=== PATIENT | male | born 1990 | race African-American/Black ===

== ENCOUNTER 2017-02-14 13:23 | Observation (INO) | payer MEDICAID, OTHER ==
[~2017-02-14] VITALS: Ht 165.1 cm; Wt 59.0 kg
[2017-02-14 14:00] LABS: Basophils # (auto) 0.1 uL; Basophils % (auto) 0.4 % (0.0-2.0); Eosinophils # (auto) 0 uL; Hematocrit 45.1 % (41.0-53.0); Hemoglobin 15.1 g/dL (13.5-17.5); Lymphocytes # (auto) 1.6 uL; Lymphocytes % (auto) 10.9 % (10.0-50.0); Mean Corpuscular Hemoglobin 31.4 pg (28.0-32.0); Mean Corpuscular Hgb Conc. 33.4 g/dL (32.0-36.0); Mean Platelet Volume 8.2 fL (7.4-10.4); Monocytes # (auto) 0.4 uL; Monocytes % (auto) 2.4 % (0.0-12.0); Neutrophils # (auto) 12.9 uL; Neutrophils % (auto) 86.3 % (37.0-80.0); Platelet Count (auto) 423 10^3/uL (140-450); White Blood Cell 14.9 10^3/uL (4.4-10.8)
[2017-02-14 14:12] LABS: Albumin 4.1 g/dL (3.4-5.0); Anion Gap 12 (5-15); Aspartate Aminotransferase 20 U/L (15-37); BUN/Creatinine Ratio 6.6; Blood Urea Nitrogen 9 mg/dL (7-18); Calcium 8.9 mg/dL (8.5-10.1); Carbon Dioxide 24 mmol/L (21-32); Chloride 106 mmol/L (98-107); GFR African American 81 mL/min; GFR Non-African American 67 mL/min; Glucose 106 mg/dL (74-106); Potassium 3.6 mmol/L (3.5-5.1); Sodium 142 mmol/L (136-145)
[2017-02-14 14:15] LABS: Alkaline Phosphatase 64 U/L (45-117); Bilirubin, Total 0.6 mg/dL (0.2-1.0); Total Protein 8.2 g/dL (6.4-8.2)
[2017-02-14 14:24] LABS: Urine Bilirubin Negative (Negative); Urine Blood Negative /uL (Negative); Urine Color Yellow (Yellow); Urine Glucose Normal (Normal); Urine Ketone TRACE (Negative); Urine Mucus FEW (None Seen); Urine Nitrite Negative (Negative); Urine RBC 4 /hpf (0 - 3); Urine Urobilinogen Normal (Negative); Urine pH 6.5 (5.0-8.0)
[2017-02-14] MEDS ORDERED: PANTOPRAZOLE SODIUM 80 MG in SODIUM CHL 0.9% 60 ML IV ONE (15:30)
[2017-02-14] MEDS ORDERED: ONDANSETRON HCL 4 MG/2 ML VIAL IV ONE (15:30)
[2017-02-14] MEDS ORDERED: PANTOPRAZOLE SODIUM 40 MG/10 ML VIAL IV ONE (15:45)
[2017-02-14] MEDS ORDERED: SODIUM CHLORIDE 0.9% 1,000 ML IV ONE (15:45)
[2017-02-14 16:17] VITALS: BP 138/76
[2017-02-14] MEDS ORDERED: KETOROLAC TROMETH 30 MG/ML 1ML VIAL IV ONE (16:30)
[2017-02-14 18:11] LABS: Amylase 91 U/L (25-115)
== END 2017-02-14 18:01 | disposition home or self-care (01) | DRG 241 ==
LOC: ER 13:32 → OVERFLOW 15:46 → ER 18:01
PROVIDERS: ADMIT Family Medicine; ATTEND Family Medicine
DX: K29.20 Alcoholic gastritis without bleeding (principal); F10.10 Alcohol abuse, uncomplicated
CPT/HCPCS: 36415; 71010; 80053; 80307; 80320; 81001; 82150; 83690; 85025; 96361; 96374; 96375; 99285; C9113; G0378; J1885; J2405; J7030

== ENCOUNTER 2017-02-15 08:47 | Emergency (ER) | payer MEDICAID ==
[~2017-02-15] VITALS: Ht 165.1 cm; Wt 59.0 kg
[2017-02-15 09:21] LABS: Basophils # (auto) 0.1 uL; Basophils % (auto) 0.7 % (0.0-2.0); Eosinophils # (auto) 0.1 uL; Eosinophils % (auto) 0.4 % (0.0-7.0); Hematocrit 45.4 % (41.0-53.0); Hemoglobin 15.2 g/dL (13.5-17.5); Lymphocytes # (auto) 3.3 uL; Lymphocytes % (auto) 22.4 % (10.0-50.0); Mean Corpuscular Hemoglobin 31.3 pg (28.0-32.0); Mean Corpuscular Hgb Conc. 33.6 g/dL (32.0-36.0); Mean Corpuscular Volume 93.3 fL (80.0-100.0); Mean Platelet Volume 8.1 fL (7.4-10.4); Monocytes # (auto) 1.2 uL; Monocytes % (auto) 8.1 % (0.0-12.0); Neutrophils % (auto) 68.4 % (37.0-80.0); Platelet Count (auto) 426 10^3/uL (140-450); Red Cell Distribution Width 13.1 % (11.6-16.0); White Blood Cell 14.6 10^3/uL (4.4-10.8)
[2017-02-15 09:47] LABS: Albumin 4.3 g/dL (3.4-5.0); BUN/Creatinine Ratio 11.3; Bilirubin, Total 1.1 mg/dL (0.2-1.0); Potassium 3.4 mmol/L (3.5-5.1); Total Protein 7.7 g/dL (6.4-8.2)
[2017-02-15] MEDS ORDERED: SODIUM CHLORIDE 0.9% 1,000 ML IVB ONE (10:08)
[2017-02-15] MEDS ORDERED: DONNATAL 5ml ORAL Elix (BELLADONNA ALK-PHENOBARB) PO ONE (10:15)
[2017-02-15] MEDS ORDERED: FAMOTIDINE 20 MG TAB PO ONE (10:15)
[2017-02-15] MEDS ORDERED: KETOROLAC TROMETH 30 MG/ML 1ML VIAL IV ONE (10:15)
[2017-02-15] MEDS ORDERED: ALUM & MAG HYDROX-SIMETH LIQ(MAALOX) 30 ML PO ONE (10:15)
[2017-02-15 10:31] LABS: Magnesium 2.4 mg/dL (1.6-2.6)
[2017-02-15] MEDS: PROMETHAZINE HCL 25 MG/ML 1ML IV PRN ×2 (11:14→12:31)
[2017-02-15] MEDS ORDERED: POTASSIUM CHL 10% (20 MEQ/15ML) ORAL SOLN PO ONE (12:15)
[2017-02-15 12:19] LABS: Urine Bilirubin Negative (Negative); Urine Blood Negative /uL (Negative); Urine Color Yellow (Yellow); Urine Glucose Normal (Normal); Urine Mucus FEW (None Seen); Urine Nitrite Negative (Negative); Urine RBC 1 /hpf (0 - 3); Urine Squamous Epithelial Cell FEW /hpf (<5); Urine Urobilinogen Normal (Negative); Urine pH 6.5 (5.0-8.0)
[2017-02-15 12:22] LABS: Urine Ketone 1+ (Negative)
[2017-02-15 13:36] VITALS: BP 110/59
== END 2017-02-15 14:52 | disposition home or self-care (01) ==
LOC: ER 08:47
DX: R10.32 Left lower quadrant pain (principal); F12.10 Cannabis abuse, uncomplicated; F15.10 Other stimulant abuse, uncomplicated; F17.200 Nicotine dependence, unspecified, uncomplicated
CPT/HCPCS: 36415; 74176; 80053; 80307; 81001; 83690; 83735; 85025; 93005; 94761; 96361; 96374; 96375; 99285; J1885; J2550; J7030; J7040

== ENCOUNTER 2017-02-17 12:25 | Emergency (ER) | payer MEDICAID ==
[~2017-02-17] VITALS: Ht 165.1 cm; Wt 59.0 kg
[2017-02-17 12:32] VITALS: BP 136/76
== END 2017-02-17 17:00 | disposition left against medical advice (07) ==
LOC: ER 12:25
DX: R10.9 Unspecified abdominal pain (principal); R11.2 Nausea with vomiting, unspecified; Z53.21 Procedure and treatment not carried out due to patient leaving prior to being seen by health care provider